=== PATIENT | male | born 1985 | race Caucasian/White ===

== ENCOUNTER 2018-12-27 14:54 | Inpatient (IN) | payer OTHER ==
[2018-12-27 16:42] VITALS: BMI 22.5
--- NOTE | 2018-12-27 18:52 | HP ---
COWS - Scale Resting Pulse: 0= [place] 80 or Below Sweatin=Flushed/Facial Moisture Restless Observation: 3= Extraneous Movement Pupil Size: 0= Normal to Room Light Bone or Joint Aches: 1= Mild Discomfort Runny Nose/ Eye Tearin= Runny Nose/Eyes GI Upset > 30mins: 1= Stomach Cramp Tremor Observation: 0= None Yawning Observation: 0= None Anxiety or Irritability: 1=Feels Anxious/Irritable Goose Flesh Skin: 0=Smooth Skin COWS Score: 10 CIWA Score - Admission Criteria [facility]ASAS Guidelines: Admission for Medically Managed Detox: Requires at least one of the followin. CIWA greater than 12 2. Seizures within the past 24 hours 3. Delirium tremens within the past 24 hours 4. Hallucinations within the past 24 hours 5. Acute intervention needed for co occurring medical disorder 6. Acute intervention needed for co occurring psychiatric disorder 7. Severe withdrawal that cannot be handled at a lower level of care (continued vomiting, continued diarrhea, abnormal vital signs) requiring intravenous medication and/or fluids 8. Admission ROS [facility] Allergies/Adverse Reactions: Allergies Allergy/AdvReac Type Severity Reaction Status Date / Time No Known Allergies Allergy Verified 12/27/18 17:52 History of Present Illness: pt here requesting detox from heroin use, reports 3 -4 bags of heroin via inhalation /day since relapse 1 month ago , latest use this morning, current symptoms as above, prior 3- year sobriety , prior IVDU heroin since age 10 . Detox /rehab x 2 , rehab x 1 . denies participation in outpt program , denies MMTP. oxy - from most recent rx for lumbar spine surgery 11/22/18 2/2 pain , L5-S1 fusion ( [facility]) , reports less pain postop than pre-op . cannabis use -4 blunts/day since age 6 denies other illicits currently , in the past " I've done everything : coke , angeilne dust " tobacco : 10/10 ppd PMHX : htn , hep C ( dx> 10 years ago RF=IVDU , tx 1 yr ago completed at [facility]), headache, prostate issue ( ? BPH per pharmacy on Flomax , pt states takes " once in a while " ) , chronic LBP . pshx : as above and childhood hernia surgery PSych : anxiety, depression , denies SI/ HI meds : Oxycodone 5 mg, Baclofen , Gabapentin - did not bring meds . Shx : homeless, lives w/ sister . 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 Denies legal issues Exam Limitations: No Limitations - Ebola screening Have you traveled outside of the country in the last 21 days: No Have you had contact with anyone from an Ebola affected area: No Have you been sick,other than usual withdrawal symptoms: No - Review of Systems Constitutional: See HPI EENT: reports: Nose Congestion, Other (myopia , denies dysphagia) Respiratory: reports: No Symptoms reported Cardiac: reports: No Symptoms Reported GI: reports: See HPI : reports: No Symptoms Reported Musculoskeletal: reports: Back Pain, Muscle Pain Integumentary: reports: See HPI Neuro: reports: No Symptoms reported Endocrine: reports: No Symptoms Reported Psychiatric: reports: Mood/Affect Appropiate, Orientated x3, Anxious Patient History - Patient Medical History Hx Asthma: No Hx Chronic Obstructive Pulmonary Disease (COPD): No Hx Cardiac Disorders: No Hx Hypertension: No Hx Seizures: No Hx Diabetes: No Hx Gastrointestinal Disorders: No Hx Genitourinary Disorders: No Hx Sexually Transmitted Disorders: No Hx Renal Disease (ESRD): No Hx Depression: Yes Hx Suicide Attempt: No Hx Schizophrenia: No - Patient Surgical History Past Surgical History: Yes Hx Neurologic Surgery: No Hx Cataract Extraction: No Hx Cardiac Surgery: No Hx Lung Surgery: No Hx Breast Surgery: No Hx Breast Biopsy: No Hx Abdominal Surgery: No Hx Appendectomy: No Hx Cholecystectomy: No Hx Genitourinary Surgery: No Hx Section: No Hx Orthopedic Surgery: Yes (BACK SURGERY) Anesthesia Reaction: No - PPD History Previous Implant?: Yes Documented Results: Negative w/o proof - Smoking Cessation Smoking history: Current every day smoker Aproximately how many cigarettes per day: 10 Hx Chewing Tobacco Use: No Initiated information on smoking cessation: No - Substances Abused Heroin Route: Inhalation Frequency: Daily Amount used: 3 BAGS Age of first use: 10 Date of Last Use: 12/27/18 Marijuana/Hashish Route: Smoking Frequency: Daily Amount used: 4 BAGS Age of first use: 8 Date of Last Use: 12/27/18 Family Disease History - Family Disease History Family History: Denies Other Family History: no children Admission Physical Exam S - Vital Signs Vital Signs: Vital Signs - 24 hr 12/27/18 16:41 Temperature 98.1 F Pulse Rate 53 L Respiratory 18 Rate Blood Pressure 123/67 - Physical General Appearance: Yes: Mild Distress, Anxious HEENTM: Yes: EOMI, Hearing grossly Normal, Normocephalic, Normal Voice Respiratory: Yes: Chest Non-Tender, Lungs Clear, Normal Breath Sounds Neck: Yes: No masses,lesions,Nodules, Trachea in good position Cardiology: Yes: Regular Rhythm, Regular Rate, S1, S2 Abdominal: Yes: Soft, Surgical Scar (transverse lower abdomen from spinal surgery) Back: Yes: Surgical Scar Musculoskeletal: Yes: Gait Steady Extremities: Yes: Non-Tender Neurological: Yes: Motor Strength 5/5 Integumentary: Yes: Normal Color - Diagnostic (1) Opioid dependence Current Visit: Yes Status: Acute Qualifiers: Substance use status: in withdrawal Qualified Code(s): F11.23 - Opioid dependence with withdrawal (2) Cocaine dependence Current Visit: Yes Status: Chronic Qualifiers: Substance use status: uncomplicated Qualified Code(s): F14.20 - Cocaine dependence, uncomplicated (3) Nicotine dependence Current Visit: Yes Status: Chronic Qualifiers: Nicotine product type: cigarettes BHS Breath Alcohol Content Breath Alcohol Content: 0 Urine Drug Screen - Results Drug Screen Negative: No Urine Drug Screen Results: THC-Marijuana, OPI-Opiates, OXY-Oxycodone, FEN- Fentanyl Inpatient Rehab Admission - Rehab Decision to Admit Inpatient rehab admission?: No
[2018-12-27] MEDS ORDERED: MAG HYDROX/AL HYDROX/SIMETH 30 ML UNIT-DOSE CUP PO PRN (19:06)
[2018-12-27] MEDS ORDERED: MAGNESIUM HYDROX 2400MG/30ML ORAL SUSPENSION 30 ML CUP PO PRN (19:06)
[2018-12-27] MEDS ORDERED: MENTHOL/PHENOL 1 EACH UD MM PRN (19:06)
[2018-12-27] MEDS ORDERED: MAGNESIUM CITRATE 300 ML BOTTLE PO PRN (19:06)
[2018-12-27] MEDS ORDERED: cloNIDine HCL 0.1 MG TABLET PO PRN (19:06)
[2018-12-27] MEDS ORDERED: ACETAMINOPHEN 325 MG TABLET (FP) PO PRN (19:06)
[2018-12-27] MEDS ORDERED: DICYCLOMINE HCL 10 MG CAPSULE PO PRN (19:06)
[2018-12-27] MEDS ORDERED: NICOTINE POLACRILEX 2 MG GUM BUC PRN (19:06)
[2018-12-27] MEDS ORDERED: IBUPROFEN 400 MG TABLET (FP) PO PRN (19:06)
[2018-12-27] MEDS: hydrOXYzine PAMOATE 25 MG CAPSULE (FP) PO PRN (20:31)
[2018-12-27] MEDS: THIAMINE HCL 100 MG TABLET (FP) PO SCH (22:07)
[2018-12-27] MEDS: GABAPENTIN 100 MG CAPSULE (FP) PO SCH (22:07)
[2018-12-27] MEDS ORDERED: METHADONE HCL 10 MG TABLET (FOR DETOX USE ONLY) PO ONE (23:00)
[2018-12-28] MEDS: GABAPENTIN 100 MG CAPSULE (FP) PO SCH ×3 (06:07→22:06)
[2018-12-28] MEDS: hydrOXYzine PAMOATE 25 MG CAPSULE (FP) PO PRN ×2 (06:09→22:29)
[2018-12-28] MEDS: PRENATAL VITAMINS W/ FOLIC ACID TABLET (FP) PO SCH (09:59)
[2018-12-28] MEDS ORDERED: METHADONE HCL 5 MG TABLET (FOR DETOX USE ONLY) PO ONE (10:00)
[2018-12-28] MEDS: METHOCARBAMOL 500 MG TABLET PO PRN ×2 (10:01→22:08)
[2018-12-28 11:24] LABS: HEMATOCRIT 41.9 % (35.4-49); MCH 32.1 pg (25.7-33.7); MCHC 33.6 g/dl (32.0-35.9); MEAN CELL VOLUME 95.7 fl (80-96); MEAN PLT VOLUME 12.3 fl (7.5-11.1); PLATELET COUNT 132 K/MM3 (134-434); RBC 4.38 M/mm3 (4.00-5.60); RDW 13.4 % (11.9-15.9); WHITE BLOOD COUNT 6.7 K/mm3 (4.0-10.0)
[2018-12-28 11:52] LABS: ALK PHOS 73 U/L (45-117); ANION GAP 4 MMOL/L (8-16); BILIRUBIN,TOTAL 0.4 mg/dL (0.2-1); BLOOD UREA NITROGEN 12 mg/dL (7-18); CALCIUM 9.6 mg/dL (8.5-10.1); CHLORIDE 104 mmol/L (98-107); CO2 31 mmol/L (21-32); CREATININE 1.2 mg/dL (0.55-1.3); GLUCOSE,RANDOM 79 mg/dL (74-106); POTASSIUM 4.3 mmol/L (3.5-5.1); SGOT/AST 10 U/L (15-37); SGPT/ALT 18 U/L (13-61); SODIUM 139 mmol/L (136-145)
--- NOTE | 2018-12-28 12:10 | PN ---
BHS COWS - Scale Resting Pulse: 1= VT 81-100 Sweatin= Chills/Flushing Restless Observation: 1= Difficult to Sit Still Pupil Size: 0= Normal to Room Light Bone or Joint Aches: 1= Mild Discomfort Runny Nose/ Eye Tearin= Nasal Congestion GI Upset > 30mins: 1= Stomach Cramp Tremor Observation of Outstretched Hands: 1= Tremor [place], Not Seen Yawning Observation: 1= 1-2x During Session Anxiety or Irritability: 1=Feels Anxious/Irritable Goose Flesh Skin: 0=Smooth Skin COWS Score: 9 BHS Progress Note (SOAP) Subjective: pt states doing well overall with the detox protocol, d/w pt termination clerk maintenance Rx with suboxone or Methadone O: Vital Signs - 24 hr 12/27/18 12/27/18 12/28/18 16:41 21:31 00:30 Temperature 98.1 F 96.7 F L Pulse Rate 53 L 54 L Respiratory 18 18 18 Rate Blood Pressure 123/67 115/83 12/28/18 12/28/18 06:37 09:47 Temperature 99.1 F 100.0 F H Pulse Rate 56 L 63 Respiratory 18 18 Rate Blood Pressure 111/78 114/72 Laboratory Tests 12/28/18 12/28/18 12/28/18 07:00 07:00 07:00 WBC 6.7 RBC 4.38 Hgb 14.0 Hct 41.9 MCV 95.7 MCH 32.1 MCHC 33.6 RDW 13.4 Plt Count 132 L MPV 12.3 H Sodium 139 Potassium 4.3 Chloride 104 Carbon Dioxide 31 Anion Gap 4 L BUN 12 Creatinine 1.2 Creat Clearance w eGFR 68.90 Random Glucose 79 Calcium 9.6 Total Bilirubin 0.4 AST 10 L ALT 18 Alkaline Phosphatase 73 Total Protein 7.0 Albumin 4.0 RPR Titer HIV 1&2 Antibody Screen Negative HIV P24 Antigen Negative 12/28/18 07:00 WBC RBC Hgb Hct MCV MCH MCHC RDW Plt Count MPV Sodium Potassium Chloride Carbon Dioxide Anion Gap BUN Creatinine Creat Clearance w eGFR Random Glucose Calcium Total Bilirubin AST ALT Alkaline Phosphatase Total Protein Albumin RPR Titer Nonreactive HIV 1&2 Antibody Screen HIV P24 Antigen mildly increased temp-100 nl WBC/CBC a/p: continue alcohol detox protocol follow temp.
[2018-12-28] MEDS: ACETAMINOPHEN 325 MG TABLET (FP) PO PRN ×2 (15:32→22:08)
[2018-12-28] MEDS: THIAMINE HCL 100 MG TABLET (FP) PO SCH (22:06)
[2018-12-28] MEDS: MELATONIN 5 MG TABLETS PO PRN (22:07)
[2018-12-29] MEDS: GABAPENTIN 100 MG CAPSULE (FP) PO SCH ×3 (05:47→22:29)
[2018-12-29] MEDS ORDERED: METHADONE HCL 10 MG TABLET (FOR DETOX USE ONLY) PO ONE (10:00)
--- NOTE | 2018-12-29 10:04 | PN ---
S CIWA - CIWA Score Muscle Tremors: 2 BHS COWS - Scale Resting Pulse: 0= [place] 80 or Below Sweatin= Chills/Flushing Restless Observation: 1= Difficult to Sit Still Pupil Size: 0= Normal to Room Light Bone or Joint Aches: 2= Severe Diffuse Aches Runny Nose/ Eye Tearin= Runny Nose/Eyes GI Upset > 30mins: 2= Nausea/Diarrhea Tremor Observation of Outstretched Hands: 1= Tremor [place], Not Seen Yawning Observation: 1= 1-2x During Session Anxiety or Irritability: 2=Irritable/Anxious Goose Flesh Skin: 0=Smooth Skin COWS Score: 12 BHS Progress Note (SOAP) Subjective: c/o of back pain, runny nose, chills, sweats , interrupted sleep Objective: 12/29/18 12:53 Vital Signs Temperature 96.9 F L 12/29/18 09:47 Pulse Rate 53 L 12/29/18 09:47 Respiratory Rate 18 12/29/18 09:47 Blood Pressure 103/61 12/29/18 09:47 O2 Sat by Pulse Oximetry (%) Laboratory Last Values WBC 6.7 K/mm3 (4.0-10.0) 12/28/18 07:00 RBC 4.38 M/mm3 (4.00-5.60) 12/28/18 07:00 Hgb 14.0 GM/dL (11.7-16.9) 12/28/18 07:00 Hct 41.9 % (35.4-49) 12/28/18 07:00 MCV 95.7 fl (80-96) 12/28/18 07:00 MCH 32.1 pg (25.7-33.7) 12/28/18 07:00 MCHC 33.6 g/dl (32.0-35.9) 12/28/18 07:00 RDW 13.4 % (11.9-15.9) 12/28/18 07:00 Plt Count 132 K/MM3 (134-434) L 12/28/18 07:00 MPV 12.3 fl (7.5-11.1) H 12/28/18 07:00 Sodium 139 mmol/L (136-145) 12/28/18 07:00 Potassium 4.3 mmol/L (3.5-5.1) 12/28/18 07:00 Chloride 104 mmol/L (98-107) 12/28/18 07:00 Carbon Dioxide 31 mmol/L (21-32) 12/28/18 07:00 Anion Gap 4 MMOL/L (8-16) L 12/28/18 07:00 BUN 12 mg/dL (7-18) 12/28/18 07:00 Creatinine 1.2 mg/dL (0.55-1.3) 12/28/18 07:00 Creat Clearance w eGFR 68.90 (>60) 12/28/18 07:00 Random Glucose 79 mg/dL (74-106) 12/28/18 07:00 Calcium 9.6 mg/dL (8.5-10.1) 12/28/18 07:00 Total Bilirubin 0.4 mg/dL (0.2-1) 12/28/18 07:00 AST 10 U/L (15-37) L 12/28/18 07:00 ALT 18 U/L (13-61) 12/28/18 07:00 Alkaline Phosphatase 73 U/L (45-117) 12/28/18 07:00 Total Protein 7.0 g/dl (6.4-8.2) 12/28/18 07:00 Albumin 4.0 g/dl (3.4-5.0) 12/28/18 07:00 RPR Titer Nonreactive (NONREACTIVE) 12/28/18 07:00 HIV 1&2 Antibody Screen Negative 12/28/18 07:00 HIV P24 Antigen Negative 12/28/18 07:00 labs noted Aox3 no distress anxious + rihonrrhea + back p[ain full ROM ambulating in the unit withdrawal symptoms Plan: continue detox increase PO fluids continue to monitor Evaluate in AM, if patient c/o with withdrawals d/c 12/31/18
[2018-12-29] MEDS: PRENATAL VITAMINS W/ FOLIC ACID TABLET (FP) PO SCH (10:41)
[2018-12-29] MEDS: METHOCARBAMOL 500 MG TABLET PO PRN ×2 (10:42→22:30)
[2018-12-29] MEDS: hydrOXYzine PAMOATE 25 MG CAPSULE (FP) PO PRN ×2 (10:43→22:30)
[2018-12-29] MEDS: ACETAMINOPHEN 325 MG TABLET (FP) PO PRN ×2 (10:43→18:08)
[2018-12-29] MEDS: THIAMINE HCL 100 MG TABLET (FP) PO SCH (22:29)
[2018-12-29] MEDS: MELATONIN 5 MG TABLETS PO PRN (22:31)
[2018-12-30] MEDS: GABAPENTIN 100 MG CAPSULE (FP) PO SCH (05:29)
[2018-12-30] MEDS: METHOCARBAMOL 500 MG TABLET PO PRN (05:30)
[2018-12-30] MEDS ORDERED: METHADONE HCL 5 MG TABLET (FOR DETOX USE ONLY) PO ONE (06:00)
[2018-12-30 06:34] VITALS: BP 104/64; PULSE 50; TEMP 98.3
--- NOTE | 2018-12-30 08:29 | DS ---
[facility] Detox Discharge Summary Admission Date: 12/27/18 Discharge Date: 12/30/18 - History Present History: Opioid Dependence Additional Comments: 33 years old male admittedf on 12/27/18 for opiate withdrawal stabilization completed detox regimen aftercare patient preferring continue pain management recommend medication assisted treatment maintenance program - Physical Exam Results Vital Signs: Vital Signs Temperature 98.3 F 12/30/18 06:34 Pulse Rate 50 L 12/30/18 06:34 Respiratory Rate 18 12/30/18 06:34 Blood Pressure 104/64 12/30/18 06:34 O2 Sat by Pulse Oximetry (%) Pertinent Admission Physical Exam Findings: opiate withdrawal sx Laboratory Last Values WBC 6.7 K/mm3 (4.0-10.0) 12/28/18 07:00 RBC 4.38 M/mm3 (4.00-5.60) 12/28/18 07:00 Hgb 14.0 GM/dL (11.7-16.9) 12/28/18 07:00 Hct 41.9 % (35.4-49) 12/28/18 07:00 MCV 95.7 fl (80-96) 12/28/18 07:00 MCH 32.1 pg (25.7-33.7) 12/28/18 07:00 MCHC 33.6 g/dl (32.0-35.9) 12/28/18 07:00 RDW 13.4 % (11.9-15.9) 12/28/18 07:00 Plt Count 132 K/MM3 (134-434) L 12/28/18 07:00 MPV 12.3 fl (7.5-11.1) H 12/28/18 07:00 Sodium 139 mmol/L (136-145) 12/28/18 07:00 Potassium 4.3 mmol/L (3.5-5.1) 12/28/18 07:00 Chloride 104 mmol/L (98-107) 12/28/18 07:00 Carbon Dioxide 31 mmol/L (21-32) 12/28/18 07:00 Anion Gap 4 MMOL/L (8-16) L 12/28/18 07:00 BUN 12 mg/dL (7-18) 12/28/18 07:00 Creatinine 1.2 mg/dL (0.55-1.3) 12/28/18 07:00 Creat Clearance w eGFR 68.90 (>60) 12/28/18 07:00 Random Glucose 79 mg/dL (74-106) 12/28/18 07:00 Calcium 9.6 mg/dL (8.5-10.1) 12/28/18 07:00 Total Bilirubin 0.4 mg/dL (0.2-1) 12/28/18 07:00 AST 10 U/L (15-37) L 12/28/18 07:00 ALT 18 U/L (13-61) 12/28/18 07:00 Alkaline Phosphatase 73 U/L (45-117) 12/28/18 07:00 Total Protein 7.0 g/dl (6.4-8.2) 12/28/18 07:00 Albumin 4.0 g/dl (3.4-5.0) 12/28/18 07:00 RPR Titer Nonreactive (NONREACTIVE) 12/28/18 07:00 HIV 1&2 Antibody Screen Negative 12/28/18 07:00 HIV P24 Antigen Negative 12/28/18 07:00 lab noted - Treatment Hospital Course: Detox Protocol Followed, Detoxed Safely, Responded well, Discharged Condition Good, Rehab Referral Accepted Patient has Accepted a Rehab Referral to: community pain management - Medication Discharge Medications: Ambulatory Orders Baclofen [Lioresal -] 10 mg PO BID 12/27/18 Gabapentin [Neurontin -] 300 mg PO TID 12/27/18 Oxycodone HCl [Roxicodone] 5 mg PO TID 12/27/18 - Diagnosis (1) Opioid dependence Status: Acute Qualifiers: Substance use status: in withdrawal Qualified Code(s): F11.23 - Opioid dependence with withdrawal (2) Nicotine dependence Status: Acute Qualifiers: Nicotine product type: cigarettes Substance use status: in withdrawal Qualified Code(s): F17.213 - Nicotine dependence, cigarettes, with withdrawal - AMA Did Patient Leave Against Medical Advice: No
== END 2018-12-30 09:17 | disposition home or self-care (01) | DRG 773 ==
LOC: YASAS 14:54 → Y3N 19:40
PROVIDERS: ADMIT Surgery; ATTEND Surgery
PROC: HZ2ZZZZ Detoxification Services for Substance Abuse Treatment (ICD-10-PCS; principal; 2018-12-27)
DX: F11.23 Opioid dependence with withdrawal (principal); F14.20 Cocaine dependence, uncomplicated; F17.213 Nicotine dependence, cigarettes, with withdrawal; F41.8 Other specified anxiety disorders; F32.9 Major depressive disorder, single episode, unspecified; I10 Essential (primary) hypertension; M54.5 Low back pain; Z86.19 Personal history of other infectious and parasitic diseases
CPT/HCPCS: 36415; 80053; 85027; 86593; 87389